=== PATIENT | female | born 1975 | race Caucasian/White ===

== ENCOUNTER 2025-05-20 14:39 | Outpatient (CLI) | payer OTHER, SELFPAY ==
--- NOTE | ~2025-05-20 | XR_ITS ---
PROCEDURE(S): Radiography of right wrist, minimum 3 views INDICATION(S): Ganglion cyst COMPARISON(S): None. TECHNIQUE: 4 radiographic images were submitted for interpretation. FINDINGS: Bones: There are no fractures seen. There are no destructive lesions or other lesions identified. Joints: There are no dislocations identified. There is no evidence of erosive arthropathy. No destructive lesions are seen. The site of the abnormality was not indicated in writing, and it was not marked at the time of imaging. IMPRESSION: No significant abnormalities are seen. If there is clinical concern for musculoskeletal mass, MR is recommended. Reviewed, dictated and finalized at location A. [facility]
== END 2025-05-20 14:40 | disposition home or self-care (01) ==
PROVIDERS: Visit Provider Physician Assistant Surgical
DX: M67.431 Ganglion, right wrist (principal)
CPT/HCPCS: 73110